=== PATIENT | female | born 1955 | race Caucasian/White ===

== ENCOUNTER 2018-01-16 06:50 | Emergency (ER) | payer OTHER ==
[~2018-01-16] VITALS: Ht 162.6 cm; Wt 85.0 kg
[2018-01-16 07:00] VITALS: BP 140/69; PULSE 53; RESP 16; TEMP 97.5; O2SAT 99
[2018-01-16] MEDS ORDERED: SODIUM CHLOR 0.9% 1000 ML INJ 1,000 ML IV SCH (07:13)
[2018-01-16] MEDS ORDERED: ONDANSETRON HCL 4 MG/2 ML VIAL IVP ONE (07:15)
[2018-01-16] MEDS ORDERED: MORPHINE SULFATE 4 MG/ML INJ IV PUSH ONE (07:15)
--- NOTE | 2018-01-16 07:20 | PD ---
HPI . Abdominal pain Chief Complaint: GI Complaint Time Seen by Provider: 07:07 Travel History International Travel<30 days: No Contact w/Intl Traveler<30days: No Traveled to known affect area: No History of Present Illness HPI Patient presents with a chief complaint of abdominal pain. Onset was at 01 30. It is in the right upper quadrant. It is a constant pain which she describes as a bloating, dull feeling. She rates it 8/10. She states she has tried numerous different positions but just cannot get comfortable. There are no modifying factors. She reports nausea but no vomiting. She denies any other associated symptoms. She states that she had one previous similar episode in the recent past which was not as severe and which did not last as long. She states that she last ate a soft pretzel at about 9 PM. [facility] Social History Tobacco Use: No Allergies-Medications (Allergen,Severity, Reaction): Coded Allergies: No Known Allergies (Unverified , 01/16/18) Reported Meds & Prescriptions Reported Meds & Active Scripts Active Reported Synthroid (Levothyroxine Sodium) 75 Mcg Tab 75 Mcg PO DAILY Review of Systems Except as stated in HPI: all other systems reviewed are Neg General / Constitutional: No: Fever, Chills Respiratory: No: Cough, Shortness of Breath Gastrointestinal: Positive: Nausea, Abdominal Pain, No: Vomiting, Diarrhea Genitourinary: No: Urgency, Frequency, Dysuria Physical Exam Narrative GENERAL: Pleasant woman who does not appear to be in any acute distress. SKIN: warm/dry. Normal color and turgor. HEAD: Normocephalic. Atraumatic. EYES: Pupils equal and round. No scleral icterus. No injection or drainage. ENT: No nasal bleeding or discharge. Mucous membranes pink and moist. NECK: Trachea midline. Full range of motion without pain.. CARDIOVASCULAR: Regular rate and rhythm. Heart sounds normal. RESPIRATORY: No accessory muscle use. Clear to auscultation. Breath sounds equal bilaterally. GASTROINTESTINAL: Abdomen soft. Right upper quadrant tenderness. No guarding or rebound. Bowel sounds present. Nondistended. : No CVA tenderness. MUSCULOSKELETAL: No obvious deformities. NEUROLOGICAL: Awake and alert. No obvious cranial nerve deficits. Motor grossly within normal limits. Normal speech. PSYCHIATRIC: Appropriate mood and affect; insight and judgment normal. Data Data Last Documented VS Vital Signs Date Time Temp Pulse Resp B/P (MAP) Pulse Ox O2 Delivery O2 Flow Rate FiO2 01/16/18 09:37 16 01/16/18 08:35 100 132/63 (86) 97 Room Air 01/16/18 07:00 97.5 Orders Orders Complete Blood Count With Diff (01/16/18 07:13) Comprehensive Metabolic Panel (01/16/18 07:13) Lipase (01/16/18 07:13) Ct Abd/Pel W Iv Contrast(Rout) (01/16/18 07:13) Iv Access Insert/Monitor (01/16/18 07:13) Morphine Inj (Morphine Inj) (01/16/18 07:15) Ondansetron Inj (Zofran Inj) (01/16/18 07:15) Sodium Chlor 0.9% 1000 Ml Inj (Ns 1000 M (01/16/18 07:13) Sodium Chloride 0.9% Flush (Ns Flush) (01/16/18 07:15) Hydromorphone Pf Inj (Dilaudid Pf Inj) (01/16/18 08:00) Iohexol 350 Inj (Omnipaque 350 Inj) (01/16/18 08:30) Labs Laboratory Tests Test 01/16/18 07:35 White Blood Count 11.9 TH/MM3 Red Blood Count 3.87 MIL/MM3 Hemoglobin 12.6 GM/DL Hematocrit 37.2 % Mean Corpuscular Volume 96.1 FL Mean Corpuscular Hemoglobin 32.4 PG Mean Corpuscular Hemoglobin Concent 33.7 % Red Cell Distribution Width 13.6 % Platelet Count 245 TH/MM3 Mean Platelet Volume 7.3 FL Neutrophils (%) (Auto) 87.7 % Lymphocytes (%) (Auto) 8.3 % Monocytes (%) (Auto) 3.5 % Eosinophils (%) (Auto) 0.2 % Basophils (%) (Auto) 0.3 % Neutrophils # (Auto) 10.5 TH/MM3 Lymphocytes # (Auto) 1.0 TH/MM3 Monocytes # (Auto) 0.4 TH/MM3 Eosinophils # (Auto) 0.0 TH/MM3 Basophils # (Auto) 0.0 TH/MM3 CBC Comment DIFF FINAL Differential Comment Blood Urea Nitrogen 13 MG/DL Creatinine 0.79 MG/DL Random Glucose 151 MG/DL Total Protein 7.5 GM/DL Albumin 3.7 GM/DL Calcium Level 8.5 MG/DL Alkaline Phosphatase 96 U/L Aspartate Amino Transf (AST/SGOT) 10 U/L Alanine Aminotransferase (ALT/SGPT) 13 U/L Total Bilirubin 0.3 MG/DL Sodium Level 137 MEQ/L Potassium Level 3.9 MEQ/L Chloride Level 103 MEQ/L Carbon Dioxide Level 26.0 MEQ/L Anion Gap 8 MEQ/L Estimat Glomerular Filtration Rate 73 ML/MIN Lipase 118 U/L MDM Medical Decision Making Medical Screen Exam Complete: Yes Emergency Medical Condition: Yes Medical Record Reviewed: Yes (this patient has not been seen in our facility before. She is from [facility].) Differential Diagnosis Differential diagnosis of abdominal pain includes but is not limited to gastritis, pancreatitis, hepatitis, gastroenteritis, gallbladder disease, constipation, urinary retention, UTI, peptic ulcer disease, diverticulitis or appendicitis Narrative Course This patient presents with the acute onset right upper quadrant abdominal pain. Her history and examination is most consistent with cholecystitis. Her pain will be treated with morphine. Labs and a CT of her abdomen are pending. 8 AM Patient reports her pain has gone from an 8 to a 6 with morphine. I have ordered Dilaudid. CBC & BMP Diagram 01/16/18 07:35 Total Protein 7.5, Albumin 3.7, Calcium Level 8.5, Alkaline Phosphatase 96, Aspartate Amino Transf (AST/SGOT) 10 L, Alanine Aminotransferase (ALT/SGPT) 13, Total Bilirubin 0.3, Lipase 118 8:45 AM Patient reports she feels much more comfortable now. Her pain is down to a 2. Last Impressions Abdomen/Pelvis CT 01/16/18 0713 Signed Impressions: Service Date/Time: Tuesday, January 16, 2018 08:14 - CONCLUSION: 1. 4.5 cm cystic-appearing lesion in the right lower quadrant, probably an ovarian cyst. Scattered colonic diverticula without evidence for diverticulitis. Cooper Dawson MD The etiology of her acute abdominal pain has not been clearly identified. However, no worrisome etiology for her abdominal pain was found. Therefore, she will be discharged home with instructions to follow-up with her primary care provider for evaluation if her symptoms persist. Diagnosis Primary Impression: Abdominal pain Qualified Codes: R10.11 - Right upper quadrant pain Additional Instructions: See your doctor for further evaluation if her symptoms continue. Med/Other Pt SpecificInfo: Prescription(s) given Scripts Dicyclomine (Bentyl) 10 Mg Cap 20 MG PO QID for Bowel Management, #20 CAP 0 Refills Prov: Maritza Alvarenga MD 01/16/18 Disposition: 01 DISCHARGE HOME Condition: Stable Maritza Alvarenga MD Jan 16, 2018 07:20
[2018-01-16] MEDS ORDERED: LEVO.075 PO (07:26)
[2018-01-16 07:41] LABS: AUTOMATED NEUTROPHIL # 10.5 TH/MM3 (1.8-7.7); BASOPHIL % 0.3 % (0.0-2.0); EOSINOPHIL % 0.2 % (0.0-4.0); HEMATOCRIT 37.2 % (35.0-46.0); HEMOGLOBIN 12.6 GM/DL (11.6-15.3); LYMPH % 8.3 % (9.0-44.0); MEAN CELL VOLUME 96.1 FL (80.0-100.0); MEAN CORPUSCULAR HEMOGLOBIN 32.4 PG (27.0-34.0); MEAN CORPUSCULAR HGB CONC 33.7 % (32.0-36.0); MEAN PLATELET VOLUME 7.3 FL (7.0-11.0); MONO % 3.5 % (0.0-8.0); MONOCYTE # 0.4 TH/MM3 (0-0.9); NEUT % 87.7 % (16.0-70.0); PLATELET COUNT 245 TH/MM3 (150-450); RED BLOOD COUNT 3.87 MIL/MM3 (4.00-5.30); RED CELL DISTRIBUTION WIDTH 13.6 % (11.6-17.2); WHITE BLOOD COUNT 11.9 TH/MM3 (4.0-11.0)
[2018-01-16] MEDS: SODIUM CHLORIDE 0.9% FLUSH 10 ML FLUSH IV FLUSH PRN ×2 (07:43→08:29)
[2018-01-16 07:49] LABS: CHLORIDE 103 MEQ/L (98-107); SODIUM (NA) 137 MEQ/L (136-145)
[2018-01-16 07:52] LABS: CALCIUM 8.5 MG/DL (8.5-10.1)
[2018-01-16 07:53] LABS: ALBUMIN 3.7 GM/DL (3.4-5.0); BLOOD UREA NITROGEN 13 MG/DL (7-18); GLUCOSE,RANDOM 151 MG/DL (74-106)
[2018-01-16 07:56] LABS: ALT (GPT) 13 U/L (10-53); AST (GOT) 10 U/L (15-37); CREATININE 0.79 MG/DL (0.50-1.00); GLOMERULAR FILTRATION RATE 73 ML/MIN (>89)
[2018-01-16 07:57] LABS: TOTAL BILIRUBIN ADULT 0.3 MG/DL (0.2-1.0); TOTAL PROTEIN 7.5 GM/DL (6.4-8.2)
[2018-01-16 07:59] LABS: ALKALINE PHOSPHATASE 96 U/L (45-117)
[2018-01-16] MEDS ORDERED: HYDROmorphone HCL PF 2 MG/ML VIAL IV PUSH ONE (08:00)
[2018-01-16] MEDS ORDERED: IOHEXOL 350 MG/ML 10 ML VIAL (for RAD DIAG) IVCONTRAST ONE (08:30)
[2018-01-16 08:35] VITALS: BP 132/63; PULSE 100; RESP 16; O2SAT 97
[2018-01-16 09:10] VITALS: RESP 16
--- NOTE | 2018-01-16 09:29 | RADRPT ---
EXAM DATE/TIME: 01/16/2018 08:14 [place] COMPARISON: None. INDICATIONS : <<Mid abdominal pain and nausea.>> IV CONTRAST: <<90>> cc Omnipaque 350 (iohexol) IV ORAL CONTRAST: No oral contrast ingested. RADIATION DOSE: <<19.42>> CTDIvol (mGy) MEDICAL HISTORY : None SURGICAL HISTORY : None. ENCOUNTER: Initial ACUITY: 1 day PAIN SCALE: 8/10 LOCATION: Bilateral mid abdomen. TECHNIQUE: Volumetric scanning of the abdomen and pelvis was performed. Using automated exposure control and ad justment of the mA and/or kV according to patient size, radiation dose was kept as low as reasonably achievable to obtain optimal diagnostic quality images. DICOM format image data is available electro nically for review and comparison. FINDINGS: Lung bases clear except for minimal atelectasis or scarring. No significant abnormality in the liver, spleen, adrenals, kidneys or pancreas. No calcified gallstones or biliary ductal dilatation. No free fluid or free air. No bowel obstruction. Scattered colonic diverticula noted without evidence for diverticulitis. There is a 4.5 cm cystic lesion in the right lower quadrant. This probably represents an ovarian cyst . CONCLUSION: 1. 4.5 cm cystic-appearing lesion in the right lower quadrant, probably an ovarian cyst. Scattered co lonic diverticula without evidence for diverticulitis. Cooper Dawson MD on January 16, 2018 at 9:18 Board Certified Radiologist. This report was verified electronically.
[2018-01-16] MEDS ORDERED: DICY10 PO (09:44)
[2018-01-16] MEDS ORDERED: ZOFR4TAB PO (10:06)
== END 2018-01-16 10:11 | disposition home or self-care (01) ==
LOC: PHED 06:50
DX: R10.11 Right upper quadrant pain (principal); K57.30 Diverticulosis of large intestine without perforation or abscess without bleeding
CPT/HCPCS: 74177; 80053; 83690; 85025; 96361; 96374; 96375; 99284; J1170; J2270; J2405; J7030; Q9967